=== PATIENT | female | born 1940 | race Caucasian/White ===

== ENCOUNTER → 2019-05-25 10:56 | Outpatient (BNVA) | payer MEDICARE, SELFPAY | PROVIDERS: Family Provider Family Medicine; PCP Family Medicine; Visit Provider Internal Medicine Rheumatology | DX: M35.3 Polymyalgia rheumatica (principal); Z79.899 Other long term (current) drug therapy; M81.0 Age-related osteoporosis without current pathological fracture; Z79.52 Long term (current) use of systemic steroids; M17.10 Unilateral primary osteoarthritis, unspecified knee | CPT/HCPCS: 36415; 80076; 82306; 82565; 85651; 86140; 99214 ==

== ENCOUNTER → 2019-05-25 11:48 | Outpatient (BNVA) | payer MEDICARE, SELFPAY | PROVIDERS: Family Provider Family Medicine; PCP Family Medicine; Visit Provider Internal Medicine Rheumatology | DX: Z79.899 Other long term (current) drug therapy (principal); M81.0 Age-related osteoporosis without current pathological fracture; Z71.89 Other specified counseling; M35.3 Polymyalgia rheumatica | CPT/HCPCS: 85025 ==

== ENCOUNTER 2019-06-08 15:04 | Outpatient (CLI) | payer MEDICARE, SELFPAY ==
--- NOTE | 2019-06-08 15:45 | XR_ITS ---
WS: [id number] DEXA (DUAL ENERGY X-RAY ABSORPTIOMETRY) Bone mineral density was performed using a [employer] machine. HISTORY: osteoporosis COMPARISON: None available. Lumbar spine BMD (L1-L4): 1.217 g/cm2 T score: 0.3 Z score: 1.2 Total hip BMD: Left: 0.947 g/cm2. T score: -0.5 Z score: 0.9 Right: 0.956 g/cm2. T score: -0.4 Z score: 1.0 10 year probability of a major osteoporotic fracture is 20%. XR/XR DEXA axial skeleton* 10235 IMPRESSION: NORMAL BONE MINERAL DENSITY based upon the WHO classification for females.
== END 2019-06-08 15:05 | disposition home or self-care (01) ==
LOC: RADWPI 15:08
PROVIDERS: Family Provider Family Medicine; PCP Family Medicine; Visit Provider Internal Medicine Rheumatology
DX: M81.0 Age-related osteoporosis without current pathological fracture (principal)
CPT/HCPCS: 77080

== ENCOUNTER → 2019-11-19 09:59 | Outpatient (BNVA) | payer MEDICARE, SELFPAY | PROVIDERS: Family Provider Family Medicine; PCP Family Medicine; Referring Provider Internal Medicine Rheumatology; Visit Provider Internal Medicine Rheumatology | DX: Z79.899 Other long term (current) drug therapy (principal) | CPT/HCPCS: 36415; 80076; 82565; 85025; 85651; 86140 ==

== ENCOUNTER → 2019-12-30 14:10 | Outpatient (BNVA) | payer MEDICARE, SELFPAY | PROVIDERS: Family Provider Family Medicine; PCP Family Medicine; Visit Provider Internal Medicine Rheumatology | DX: M35.3 Polymyalgia rheumatica (principal); Z79.899 Other long term (current) drug therapy; Z79.52 Long term (current) use of systemic steroids; M17.0 Bilateral primary osteoarthritis of knee | CPT/HCPCS: 99214 ==

== ENCOUNTER → 2020-02-01 18:00 | Outpatient (BNVA) | payer MEDICARE, SELFPAY | PROVIDERS: Family Provider Family Medicine; PCP Family Medicine; Visit Provider Family Medicine | DX: I10 Essential (primary) hypertension (principal); K21.9 Gastro-esophageal reflux disease without esophagitis; E03.9 Hypothyroidism, unspecified; E78.1 Pure hyperglyceridemia; Z23 Encounter for immunization | CPT/HCPCS: 80048; 80061; 84439; 84443; 84481 ==

== ENCOUNTER → 2020-04-25 15:07 | Outpatient (BNVA) | payer MEDICARE, SELFPAY | PROVIDERS: Family Provider Family Medicine; PCP Family Medicine; Visit Provider Internal Medicine Rheumatology | DX: M35.3 Polymyalgia rheumatica (principal); M17.0 Bilateral primary osteoarthritis of knee; Z79.899 Other long term (current) drug therapy; Z79.52 Long term (current) use of systemic steroids; I87.2 Venous insufficiency (chronic) (peripheral); K21.9 Gastro-esophageal reflux disease without esophagitis | CPT/HCPCS: 99213; 99214 ==

== ENCOUNTER → 2020-08-02 11:36 | Outpatient (BNVA) | payer MEDICARE, SELFPAY | PROVIDERS: Family Provider Family Medicine; PCP Family Medicine; Visit Provider Family Medicine | DX: E03.9 Hypothyroidism, unspecified (principal); I10 Essential (primary) hypertension; K21.9 Gastro-esophageal reflux disease without esophagitis; M35.3 Polymyalgia rheumatica; Z79.899 Other long term (current) drug therapy | CPT/HCPCS: 80076; 82565; 84439; 84443; 84481; 85025; 85651; 86140 ==

== ENCOUNTER → 2020-09-04 12:38 | Outpatient (BNVA) | payer MEDICARE, SELFPAY | PROVIDERS: Family Provider Family Medicine; PCP Family Medicine; Visit Provider Internal Medicine Rheumatology | DX: M35.3 Polymyalgia rheumatica (principal); Z79.899 Other long term (current) drug therapy; Z79.52 Long term (current) use of systemic steroids; M17.0 Bilateral primary osteoarthritis of knee | CPT/HCPCS: 99214 ==

== ENCOUNTER → 2021-02-01 11:31 | Outpatient (BNVA) | payer MEDICARE, SELFPAY | PROVIDERS: Family Provider Family Medicine; PCP Family Medicine; Visit Provider Family Medicine | DX: M35.3 Polymyalgia rheumatica (principal); Z79.899 Other long term (current) drug therapy; E03.9 Hypothyroidism, unspecified | CPT/HCPCS: 80076; 82565; 85025; 86140 ==

== ENCOUNTER → 2021-02-02 00:01 | Outpatient (BNVA) | payer MEDICARE, SELFPAY | PROVIDERS: Family Provider Family Medicine; PCP Family Medicine; Visit Provider Family Medicine | DX: I10 Essential (primary) hypertension (principal); M35.3 Polymyalgia rheumatica; Z79.899 Other long term (current) drug therapy; E78.1 Pure hyperglyceridemia; E03.9 Hypothyroidism, unspecified | CPT/HCPCS: 80053; 80061; 84439; 84443; 84481 ==

== ENCOUNTER → 2021-02-12 13:31 | Outpatient (BNVA) | payer MEDICARE, SELFPAY | PROVIDERS: Family Provider Family Medicine; PCP Family Medicine; Visit Provider Internal Medicine Rheumatology | DX: M35.3 Polymyalgia rheumatica (principal); Z79.899 Other long term (current) drug therapy; Z79.52 Long term (current) use of systemic steroids; M17.0 Bilateral primary osteoarthritis of knee; Z71.89 Other specified counseling | CPT/HCPCS: 99213 ==

== ENCOUNTER → 2021-03-27 10:20 | Outpatient (BNVA) | payer MEDICARE, SELFPAY | PROVIDERS: Family Provider Family Medicine; PCP Family Medicine; Visit Provider Family Medicine | DX: E03.9 Hypothyroidism, unspecified (principal) | CPT/HCPCS: 84439; 84443; 84481 ==

== ENCOUNTER → 2021-06-11 11:00 | Outpatient (BNVA) | payer MEDICARE, SELFPAY | PROVIDERS: Family Provider Family Medicine; PCP Family Medicine; Visit Provider Family Medicine | DX: E03.9 Hypothyroidism, unspecified (principal) | CPT/HCPCS: 84439; 84443 ==

== ENCOUNTER → 2022-02-04 10:19 | Outpatient (BNVA) | payer MEDICARE, SELFPAY | PROVIDERS: Family Provider Family Medicine; PCP Family Medicine; Visit Provider Family Medicine | DX: E03.9 Hypothyroidism, unspecified (principal); I10 Essential (primary) hypertension; E78.1 Pure hyperglyceridemia; I49.9 Cardiac arrhythmia, unspecified | CPT/HCPCS: 80053; 80061; 84443 ==

== ENCOUNTER → 2023-02-03 10:37 | Outpatient (BNVA) | payer MEDICARE, SELFPAY | PROVIDERS: Family Provider Family Medicine; PCP Family Medicine; Visit Provider Family Medicine | DX: Z23 Encounter for immunization (principal); I10 Essential (primary) hypertension; E03.9 Hypothyroidism, unspecified; E78.1 Pure hyperglyceridemia | CPT/HCPCS: 80048; 80061; 84439; 84443; 84481 ==

== ENCOUNTER → 2023-02-18 11:14 | Outpatient (BNVA) | payer MEDICARE, SELFPAY | PROVIDERS: Family Provider Family Medicine; PCP Family Medicine; Visit Provider Nurse Practitioner Family | DX: Z20.822 Contact with and (suspected) exposure to COVID-19 (principal) | CPT/HCPCS: 87426 ==

== ENCOUNTER 2023-03-04 12:07 | Outpatient (CLI) | payer MEDICARE, SELFPAY ==
--- NOTE | 2023-03-04 12:23 | USCV_ITS ---
RodriguezLisset keith Age: 82 Gender: F : 1940 Exam Date: 03/04/2023 12:30 Ordering Phys: Suyapa Espana MD Technologist: CT Exam Location: [facility] [place]_ Indication: rt leg pain PROCEDURES: Venous duplex imaging was performed in only the rt lower extremity. 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
== END 2023-03-04 12:08 | disposition home or self-care (01) ==
LOC: RAD 12:07
PROVIDERS: Family Provider Family Medicine; PCP Family Medicine; Visit Provider Family Medicine
DX: M79.661 Pain in right lower leg (principal); M79.89 Other specified soft tissue disorders; U07.1 COVID-19; I82.811 Embolism and thrombosis of superficial veins of right lower extremity
CPT/HCPCS: 93971

== ENCOUNTER → 2024-02-02 10:40 | Outpatient (BNVA) | payer MEDICARE, SELFPAY | PROVIDERS: Family Provider Family Medicine; PCP Family Medicine; Visit Provider Family Medicine | DX: I10 Essential (primary) hypertension (principal); E03.9 Hypothyroidism, unspecified; E78.1 Pure hyperglyceridemia | CPT/HCPCS: 80048; 80061; 84439; 84443; 84481 ==

== ENCOUNTER → 2025-03-01 15:01 | Outpatient (BNVA) | payer MEDICARE, SELFPAY | PROVIDERS: Family Provider Family Medicine; PCP Family Medicine; Visit Provider Family Medicine | DX: I10 Essential (primary) hypertension (principal); E78.1 Pure hyperglyceridemia; E03.9 Hypothyroidism, unspecified | CPT/HCPCS: 80048; 84439; 84443; 84481 ==